=== PATIENT | male | born 1990 | race African-American/Black ===

== ENCOUNTER 2016-10-19 09:42 | Emergency (ER) | payer MEDICAID ==
[2016-10-19] MEDS ORDERED: Ketorolac 60 MG/2 ML SDV IM ONE (10:10)
--- NOTE | 2016-10-19 10:16 | EDM.PDOC ---
ED HPI GENERAL MEDICAL PROBLEM - General Chief Complaint: ENT Problem Stated Complaint: LEFT SIDE JAW/TOOTH PAIN Time Seen by Provider: 10/19/16 10:18 Source of Information: Reports: Patient, Family History Limitations: Reports: No Limitations - History of Present Illness INITIAL COMMENTS - FREE TEXT/NARRATIVE: pt has left upper dental pain. Onset: Gradual Duration: Day(s): Location: Reports: Face Associated Symptoms: Reports: No Other Symptoms Tooth/Teeth Pain Score (Numeric/FACES): 10 - Related Data Allergies Allergy/AdvReac Type Severity Reaction Status Date / Time No Known Allergies Allergy Verified 10/19/16 09:55 Home Meds: Home Meds NK [No Known Home Meds] 09/15/13 [History] Past Medical History - Past Health History Medical/Surgical History: Denies Medical/Surgical History Psychiatric History: Reports: ADHD Social & Family History - Tobacco Use Smoking Status *Q: Current Every Day Smoker Years of Tobacco use: 7 Packs/Tins Daily: 0.5 Used Tobacco, but Quit: No Second Hand Smoke Exposure: Yes - Caffeine Use Caffeine Use: Reports: Energy Drinks, Soda - Alcohol Use Days Per Week of Alcohol Use: 0 - Recreational Drug Use Recreational Drug Use: No ED ROS ENT - Review of Systems Review Of Systems: See Below Constitutional: Reports: No Symptoms HEENT: Reports: Dental Pain, Other (pt is having pin in the rt upper post--) GI/Abdominal: Reports: No Symptoms : Reports: No Symptoms ED EXAM, ENT - Physical Exam Exam: See Below Text/Narrative:: 1 month ago pt ounds like he had an abcess on his upper gum line. He took antibiotics and it got better. It has now flared up an is very uncomfortable in the rt upper area. Exam Limited By: No Limitations General Appearance: Alert, Anxious, Moderate Distress Ears: Normal TMs Nose: Normal Inspection Mouth/Throat: Dental Pain, Other (pt hs severe pain when his post post tooth is touchd. ) Head: Atraumatic Neck: Normal Inspection Respiratory/Chest: No Respiratory Distress Cardiovascular: Regular Rate, Rhythm Neurological: Alert, Oriented Course - Vital Signs Last Recorded V/S: Last Vital Signs Temp 35.4 C 10/19/16 10:43 Pulse 62 10/19/16 10:43 Resp 16 10/19/16 10:43 BP 147/75 H 10/19/16 10:43 Pulse Ox 100 10/19/16 10:43 - Orders/Labs/Meds Meds: Medications Discontinued Medications Generic Name Dose Route Start Last Admin Trade Name Trisha PRN Reason Stop Dose Admin Ketorolac Tromethamine 60 mg 10/19/16 10:10 10/19/16 10:26 Toradol IM 10/19/16 10:11 60 mg ONETIME ONE Administration - Re-Assessments/Exams Free Text/Narrative Re-Assessment/Exam: 10/19/16 10:23 torodol 60mg im was given. Departure - Departure Time of Disposition: 10:37 Disposition: Home, Self-Care 01 Condition: Fair Clinical Impression: Dental infection - Discharge Information Instructions: Dental Abscess, [id number] Referrals: PCP,None [Primary Care Provider] - Forms: ED Department Discharge Care Plan Goals: amoxicillin 500mg tid, tylenol 3 1-2 tabs q6h prn for pain, motrin 600mg tid , The dental clinic was called and they were willing to see the pt at 11:45
[2016-10-19 10:43] VITALS: BP 147/75
== END 2016-10-19 11:00 | disposition home or self-care (01) ==
LOC: JP.ED 09:42
DX: K04.7 Periapical abscess without sinus (principal); F17.210 Nicotine dependence, cigarettes, uncomplicated
CPT/HCPCS: 96372; 99283; J1885